=== PATIENT | male | born 1960 | race Caucasian/White ===

== ENCOUNTER 2016-09-15 11:32 | Emergency (ER) | payer MEDICARE, OTHER ==
[2016-09-15] MEDS ORDERED: Sodium Chloride 0.9% 10 ML Syringe FLUSH PRN (12:02)
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
[2016-09-15] MEDS ORDERED: Sodium Chloride 0.9% 1,000 ML IV ONE (12:27)
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
--- NOTE | 2016-09-15 15:45 | CR ---
Chest: Portable view of the chest was obtained. Comparison: No previous study. Cardiac silhouette and mediastinum are normal. Sternotomy is noted for prosthetic heart valve. Lungs are clear with no acute infiltrates. Bony structures appear grossly intact. Impression: 1. Nothing acute is identified on portable chest x-ray. Diagnostic code #2
[2016-09-15 17:04] VITALS: BP 134/79
== END 2016-09-15 16:55 | disposition home or self-care (01) ==
LOC: JD.ED 11:32 → SUPCPDRO 11:32 → JD.ED 16:55
DX: R42 Dizziness and giddiness (principal); Z87.891 Personal history of nicotine dependence; Z95.2 Presence of prosthetic heart valve
CPT/HCPCS: 36415; 70450; 71010; 80053; 81001; 83880; 84484; 85025; 85610; 93005; 96360; 99285; J7040; J7050; 82962; 99284

== ENCOUNTER 2017-05-19 07:57 | Inpatient (IN) | payer MEDICARE, SELFPAY ==
[~2017-05-19 07:57] MED LIST: Bisacodyl 5 MG Tab PO PRN; Cyclobenzaprine 10 MG Tab PO PRN; Lactated Ringers 1,000 ML IV SCH; Lidocaine 1%/Sod Bicarbonate in NS 8.4% 1 ML Syringe IV PRN; Magnesium Hydroxide 400 MG/5 ML Susp 30 ML Cup PO PRN; Morphine 2 MG/ML Syringe IVPUSH PRN; Naloxone 0.4 MG/ML SDV IVPUSH PRN; Ondansetron 4 MG/2 ML SDV IVPUSH PRN; Sennosides 8.6 MG Tab PO PRN; Sodium Chloride 0.9% 10 ML Syringe FLUSH PRN; diphenhydrAMINE 50 MG/ML SDV IVPUSH PRN
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
[2017-05-19] MEDS ORDERED: Morphine PF 1 MG/ML Amp ONE (08:56)
[2017-05-19] MEDS ORDERED: fentaNYL 100 MCG/2 ML SDV ONE (09:19)
[2017-05-19] MEDS ORDERED: Propofol 200 MG/20 ML SDV ONE (09:19)
[2017-05-19] MEDS ORDERED: Midazolam 1 MG/ML 2 ML SDV ONE (09:19)
[2017-05-19] MEDS ORDERED: Ondansetron 4 MG/2 ML SDV ONE (09:21)
[2017-05-19] MEDS ORDERED: ceFAZolin 1 GM Vial ONE (09:22)
[2017-05-19] MEDS: Bupivacaine 0.25% 30 ML SDV ONE ×2 (10:29→11:19)
[2017-05-19] MEDS: ceFAZolin 1 GM Vial ONE ×2 (10:30→11:14)
[2017-05-19] MEDS: Morphine 8 MG, EPINEPHrine 0.3 MG, Cefuroxime 750 MG, Ketorolac 30 MG, Sodium Chloride ... ONE ×10 (10:31→11:18)
[2017-05-19] MEDS: Iodine/Sodium Iodide 2% Tincture 30 ML Bottle ONE ×2 (10:31→11:13)
[2017-05-19] MEDS: Vancomycin 1 GM SDV ONE ×2 (10:32→11:20)
[2017-05-19] MEDS ORDERED: Lactated Ringers 1,000 ML ONE ×2 (11:18→11:38)
--- NOTE | 2017-05-19 11:59 | PCM.POSTAN ---
POST ANESTHESIA ASSESSMENT - MENTAL STATUS Mental Status: Alert, Oriented - VITAL SIGNS Pulse Rate: 67 SaO2: 94 Resp Rate: 14 Blood Pressure: 101/76 Temperature: 36.6 C - RESPIRATORY Respiratory Status: Respiratory Rate WNL, Airway Patent, O2 Saturation Stable, Supplemental Oxygen - CARDIOVASCULAR CV Status: Pulse Rate WNL, Blood Pressure Stable - GASTROINTESTINAL GI Status: No Symptoms - PAIN Pain Score: 0 - POST OP HYDRATION Hydration Status: Adequate & Stable
[2017-05-19] MEDS ORDERED: diphenhydrAMINE 50 MG/ML SDV IVPUSH PRN (12:00)
[2017-05-19] MEDS ORDERED: Ondansetron 4 MG/2 ML SDV IVPUSH PRN (12:00)
[2017-05-19] MEDS ORDERED: fentaNYL 100 MCG/2 ML SDV IVPUSH PRN (12:00)
[2017-05-19] MEDS ORDERED: Meperidine PF 50 MG/ML Syringe IVPUSH PRN (12:00)
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
[2017-05-19] MEDS: ceFAZolin 2 GM in Premix Bag 1 BAG IV SCH ×2 (15:41→23:55)
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
[2017-05-19] MEDS ORDERED: 50% Dextrose in Water 50 ML Syringe IVPUSH PRN (16:54)
[2017-05-19] MEDS ORDERED: FLU Vacc QS 2017-18 (6mos UP)/PF 60 MCG/0.5 ML Syringe IM ONE (17:15)
[2017-05-19] MEDS ORDERED: Warfarin 10 MG Tab PO ONE (18:00)
[2017-05-19] MEDS: Acetaminophen/oxyCODONE 325-5 MG Tab PO PRN (18:08)
[2017-05-19] MEDS: Insulin Aspart 100 Units/ML 3 ML Pen SUBCUT SCH ×2 (18:10→22:21)
[2017-05-19] MEDS ORDERED: Enoxaparin 30 MG/0.3 ML Syringe SUBCUT SCH (21:00)
[2017-05-19] MEDS ORDERED: Rosuvastatin 10 MG Tab PO SCH (21:00)
[2017-05-19] MEDS: Famotidine 20 MG Tab PO SCH (21:23)
[2017-05-19] MEDS: metFORMIN 500 MG Tab PO SCH (21:23)
[2017-05-19] MEDS: Docusate Sodium 100 MG Cap PO SCH (21:23)
[2017-05-20] MEDS: Acetaminophen/oxyCODONE 325-5 MG Tab PO PRN ×3 (04:30→17:20)
--- NOTE | 2017-05-20 07:15 | PCM.OPNOTE ---
- General Post-Op/Procedure Note Date of Surgery/Procedure: 05/19/17 Operative Procedure(s): right total hip arthroplasty Pre Op Diagnosis: right hip osteoarthrosis Post-Op Diagnosis: Same Anesthesia Technique: Local, MAC, Spinal Primary Surgeon: mAarjit Soto Anesthesia Provider: Bryce Pinto Energy Efficiency Specialist: Carmen Barriga Energy Efficiency Specialist: Norma Chawla EBShaina in mLs: 600 Complications: None Condition: Good Free Text/Narrative:: Intake & Output 05/19/17 05/20/17 05/20/17 22:59 06:59 14:59 Intake Total 120 450 Output Total 450 Balance 120 0 size 50 PSL cup size 7 stem 42mm MDM liner 28+8 head
--- NOTE | 2017-05-20 08:01 | PCM48HPAN ---
Post Anesthesia Note - EVALUATION WITHIN 48HRS OF ANESTHETIC Vital Signs in Normal Range: Yes Patient Participated in Evaluation: Yes Respiratory Function Stable: Yes Airway Patent: Yes Cardiovascular Function Stable: Yes Hydration Status Stable: Yes Pain Control Satisfactory: Yes Nausea and Vomiting Control Satisfactory: Yes Mental Status Recovered: Yes - COMMENTS/OBSERVATIONS Free Text/Narrative:: Patient doing well resting in bed. Has been ambulating with no problems. Has no complaints. Denies pain.
[2017-05-20] MEDS ORDERED: Cholecalciferol (Vitamin D3) 1,000 Unit Tab PO SCH (09:00)
[2017-05-20] MEDS ORDERED: amLODIPine 10 MG Tab PO SCH (09:00)
[2017-05-20] MEDS ORDERED: Metoprolol Succinate 50 MG Tab.ER PO SCH (09:00)
[2017-05-20] MEDS ORDERED: Enoxaparin 120 MG/0.8 ML Syringe SUBCUT SCH (09:00)
--- NOTE | 2017-05-20 09:00 | PCM.CONSN ---
- General Info Date of Service: 05/20/17 Admission Dx/Problem (Free Text): Admission Diagnosis/Problem Admission Diagnosis/Problem Osteoarthritis of hip POD #1, Rt GUIDO with Dr. Soto Doing well, ambulating, urinating, no N/V VSS on RA Plans for DC home today Functional Status: Reports: Pain Controlled, Tolerating Diet, Ambulating, Urinating, Incentive Spirometry - Review of Systems General: Reports: No Symptoms HEENT: Reports: No Symptoms Pulmonary: Reports: No Symptoms Cardiovascular: Reports: No Symptoms Gastrointestinal: Reports: No Symptoms Genitourinary: Reports: No Symptoms Musculoskeletal: Reports: Leg Pain Skin: Reports: No Symptoms Neurological: Reports: No Symptoms Psychiatric: Reports: No Symptoms - Patient Data Vitals - Most Recent: Last Vital Signs Temp 98.1 F 05/20/17 07:29 Pulse 81 05/20/17 07:29 Resp 16 05/20/17 07:29 BP 130/71 05/20/17 07:29 Pulse Ox 97 05/20/17 07:29 Weight - Most Recent: 258 lb 6.4 oz I&O - Last 24 Hours: Intake & Output 05/19/17 05/20/17 05/20/17 22:59 06:59 14:59 Intake Total 120 450 Output Total 450 Balance 120 0 Lab Results Last 24 Hours: Laboratory Results - last 24 hr 05/19/17 05/19/17 05/19/17 Range/Units 08:28 12:38 17:14 WBC (4.23-9.07) K/mm3 RBC (4.63-6.08) M/mm3 Hgb (13.7-17.5) gm/L Hct (40.1-51.0) % MCV (79.0-92.2) fl MCH (25.7-32.2) pg MCHC (32.2-35.5) g/dl RDW Std Deviation (35.1-43.9) fL Plt Count (163-337) K/mm3 MPV (9.4-12.3) fl PT (8.0-13.0) SECONDS INR Sodium (136-145) mEq/L Potassium (3.5-5.1) mEq/L Chloride (98-107) mEq/L Carbon Dioxide (21-32) mEq/L Anion Gap (5-15) BUN (7-18) mg/dL Creatinine (0.7-1.3) mg/dL Est Cr Clr Drug Dosing mL/min Estimated GFR (MDRD) (>60) mL/min BUN/Creatinine Ratio (14-18) Glucose (74-106) mg/dL POC Glucose 122 H 200 H (70-105) mg/dL Calcium (8.5-10.1) mg/dL Total Bilirubin (0.2-1.0) mg/dL AST (15-37) U/L ALT (16-63) U/L Alkaline Phosphatase (46-116) U/L Total Protein (6.4-8.2) g/dl Albumin (3.4-5.0) g/dl Globulin gm/dL Albumin/Globulin Ratio (1-2) Blood Type A POSITIVE Gel Antibody Screen Positive 05/19/17 05/20/17 05/20/17 Range/Units 22:10 05:10 05:10 WBC 10.53 H (4.23-9.07) K/mm3 RBC 4.38 L (4.63-6.08) M/mm3 Hgb 12.2 L (13.7-17.5) gm/L Hct 37.7 L (40.1-51.0) % MCV 86.1 (79.0-92.2) fl MCH 27.9 (25.7-32.2) pg MCHC 32.4 (32.2-35.5) g/dl RDW Std Deviation 44.1 H (35.1-43.9) fL Plt Count 174 (163-337) K/mm3 MPV 9.6 (9.4-12.3) fl PT (8.0-13.0) SECONDS INR Sodium 136 (136-145) mEq/L Potassium 4.2 (3.5-5.1) mEq/L Chloride 103 (98-107) mEq/L Carbon Dioxide 26 (21-32) mEq/L Anion Gap 11.2 (5-15) BUN 21 H (7-18) mg/dL Creatinine 1.1 (0.7-1.3) mg/dL Est Cr Clr Drug Dosing 73.20 mL/min Estimated GFR (MDRD) > 60 (>60) mL/min BUN/Creatinine Ratio 19.1 H (14-18) Glucose 151 H (74-106) mg/dL POC Glucose 151 H (70-105) mg/dL Calcium 8.3 L (8.5-10.1) mg/dL Total Bilirubin 0.5 (0.2-1.0) mg/dL AST 61 H (15-37) U/L ALT 97 H (16-63) U/L Alkaline Phosphatase 85 (46-116) U/L Total Protein 6.1 L (6.4-8.2) g/dl Albumin 3.1 L (3.4-5.0) g/dl Globulin 3.0 gm/dL Albumin/Globulin Ratio 1.0 (1-2) Blood Type Gel Antibody Screen 05/20/17 05/20/17 Range/Units 05:10 05:51 WBC (4.23-9.07) K/mm3 RBC (4.63-6.08) M/mm3 Hgb (13.7-17.5) gm/L Hct (40.1-51.0) % MCV (79.0-92.2) fl MCH (25.7-32.2) pg MCHC (32.2-35.5) g/dl RDW Std Deviation (35.1-43.9) fL Plt Count (163-337) K/mm3 MPV (9.4-12.3) fl PT 10.5 (8.0-13.0) SECONDS INR 0.97 Sodium (136-145) mEq/L Potassium (3.5-5.1) mEq/L Chloride (98-107) mEq/L Carbon Dioxide (21-32) mEq/L Anion Gap (5-15) BUN (7-18) mg/dL Creatinine (0.7-1.3) mg/dL Est Cr Clr Drug Dosing mL/min Estimated GFR (MDRD) (>60) mL/min BUN/Creatinine Ratio (14-18) Glucose (74-106) mg/dL POC Glucose 164 H (70-105) mg/dL Calcium (8.5-10.1) mg/dL Total Bilirubin (0.2-1.0) mg/dL AST (15-37) U/L ALT (16-63) U/L Alkaline Phosphatase (46-116) U/L Total Protein (6.4-8.2) g/dl Albumin (3.4-5.0) g/dl Globulin gm/dL Albumin/Globulin Ratio (1-2) Blood Type Gel Antibody Screen Med Orders - Current: Current Medications Amlodipine Besylate (Norvasc) 10 mg PO DAILY [facility] Bisacodyl (Dulcolax) 5 mg PO DAILY PRN PRN Reason: Constipation Cholecalciferol (Vitamin D3) 5,000 units PO DAILY [facility] Cyclobenzaprine HCl (Flexeril) 10 mg PO TID PRN PRN Reason: Spasms Dextrose/Water (Dextrose 50% In Water) 50 ml IVPUSH ASDIRECTED PRN PRN Reason: Hypoglycemia Diphenhydramine HCl (Benadryl) 25 mg IVPUSH Q4H PRN PRN Reason: Nausea Last Admin: 05/19/17 14:20 Dose: 25 mg Docusate Sodium (Colace) 100 mg PO BID [facility] Last Admin: 05/19/17 21:23 Dose: 100 mg Enoxaparin Sodium (Lovenox) 110 mg SUBCUT BID [facility] Famotidine (Pepcid) 20 mg PO Q12H [facility] Last Admin: 05/19/17 21:23 Dose: 20 mg Glipizide (Glucotrol) 10 mg PO DAILY [facility] Insulin Aspart (Novolog) 0 unit SUBCUT QIDACANDBED [facility] PRN Reason: Protocol Last Admin: 05/19/17 22:21 Dose: 1 units Magnesium Hydroxide (Milk Of Magnesia) 30 ml PO BID PRN PRN Reason: Constipation Metformin HCl (Glucophage) 1,000 mg PO BID [facility] Last Admin: 05/19/17 21:23 Dose: 1,000 mg Metoprolol Succinate (Toprol Xl) 100 mg PO DAILY [facility] Morphine Sulfate (Morphine) 2 mg IVPUSH Q2H PRN PRN Reason: Breakthrough Pain Naloxone HCl (Narcan) 0.1 mg IVPUSH Q5M PRN PRN Reason: Oversedation Ondansetron HCl (Zofran) 4 mg IVPUSH Q6H PRN PRN Reason: Nausea/Vomiting Oxycodone/Acetaminophen (Percocet 325-5 Mg) 1 - 2 tab PO Q4H PRN PRN Reason: Pain Last Admin: 05/20/17 04:30 Dose: 2 tab Rosuvastatin Calcium (Crestor) 20 mg PO BEDTIME [facility] Last Admin: 05/19/17 21:23 Dose: 20 mg Senna (Senna) 8.6 mg PO BID PRN PRN Reason: Constipation Sodium Chloride (Saline Flush) 10 ml FLUSH ASDIRECTED PRN PRN Reason: Keep Vein Open Warfarin Sodium (Pharmacy To Dose - Warfarin) 1 dose .XX ASDIRECTED [facility] Warfarin Sodium (Coumadin) 10 mg PO ONETIME ONE Stop: 05/20/17 18:01 Discontinued Medications Bupivacaine HCl (Marcaine 0.25%) Confirm Administered Dose 30 ml .ROUTE .STK- MED ONE Stop: 05/19/17 08:24 Last Admin: 05/19/17 11:19 Dose: 30 ml Cefazolin Sodium (Ancef) Confirm Administered Dose 2 gm .ROUTE .[facility] ONE Stop: 05/19/17 08:22 Last Admin: 05/19/17 11:14 Dose: 2 gm Cefazolin Sodium (Ancef) Confirm Administered Dose 2 gm .ROUTE .[facility] ONE Stop: 05/19/17 09:23 Morphine Sulfate 8 mg/Epinephrine HCl 0.3 mg/Cefuroxime Sodium 750 mg/Ketorolac Tromethamine 30 mg/Sodium Chloride 27.9 ml 0 mg .XX ONETIME ONE Stop: 05/19/17 08:31 Last Admin: 05/19/17 11:18 Dose: 788.3 mg Diphenhydramine HCl (Benadryl) 25 mg IVPUSH Q6H PRN PRN Reason: Pruritis Stop: 05/19/17 14:00 Enoxaparin Sodium (Lovenox) 30 mg SUBCUT BID [facility] Fentanyl (Sublimaze) Confirm Administered Dose 100 mcg .ROUTE .STK-MED ONE Stop: 05/19/17 09:20 Fentanyl (Sublimaze) 50 mcg IVPUSH Q5M PRN PRN Reason: Pain Stop: 05/19/17 14:00 Lactated Ringer's (Ringers, Lactated) 1,000 mls @ 125 mls/hr IV ASDIRECTED [facility] Stop: 05/19/17 23:00 Last Admin: 05/19/17 08:20 Dose: 125 mls/hr Cefazolin Sodium/Dextrose 2 gm (/ Premix) 50 mls @ 100 mls/hr IV Q8H [facility] Stop: 05/20/17 08:59 Last Admin: 05/19/17 23:55 Dose: 100 mls/hr Lactated Ringer's (Ringers, Lactated) Confirm Administered Dose 1,000 mls @ as directed .ROUTE .STK-MED ONE Stop: 05/19/17 11:19 Lactated Ringer's (Ringers, Lactated) Confirm Administered Dose 1,000 mls @ as directed .ROUTE .STK-MED ONE Stop: 05/19/17 11:39 Influenza Virus Vaccine (Pharmacy To Dose - Influenza Vaccine) 1 each IM ONETIME ONE Stop: 05/19/17 17:00 Influenza Virus Vaccine (Flulaval Quad [id number]) 60 mcg IM .ONCE ONE Stop: 05/19/17 17:16 Iodine (Iodine 2% Mild Tincture) Confirm Administered Dose 30 ml .ROUTE .STK- MED ONE Stop: 05/19/17 08:24 Last Admin: 05/19/17 11:13 Dose: 18 ml Lidocaine/Sodium Bicarbonate (Buffered Lidocaine 1% In Ns 8.4%) 0.25 ml IV ONETIME PRN PRN Reason: Prior to IV Start Stop: 05/19/17 16:00 Last Admin: 05/19/17 08:19 Dose: 0.25 ml Meperidine HCl (Demerol) 12.5 mg IVPUSH ONETIME PRN PRN Reason: Shivering Stop: 05/19/17 14:00 Midazolam HCl (Versed 1 Mg/Ml) Confirm Administered Dose 2 mg .ROUTE .STK-MED ONE Stop: 05/19/17 09:20 Morphine Sulfate (Duramorph Pf) Confirm Administered Dose 1 mg .ROUTE .STK-MED ONE Stop: 05/19/17 08:57 Ondansetron HCl (Zofran) Confirm Administered Dose 4 mg .ROUTE .STK-MED ONE Stop: 05/19/17 09:22 Ondansetron HCl (Zofran) 4 mg IVPUSH ONETIME PRN PRN Reason: Nausea/Vomiting Stop: 05/19/17 14:00 Propofol (Diprivan 20 Ml) Confirm Administered Dose 600 mg .ROUTE .STK-MED ONE Stop: 05/19/17 09:20 Tranexamic Acid (Cyklokapron) Confirm Administered Dose 1,000 mg .ROUTE .STK- MED ONE Stop: 05/19/17 08:23 Last Admin: 05/19/17 11:21 Dose: 1,000 mg Vancomycin HCl (Vancomycin) Confirm Administered Dose 1 gm .ROUTE .STK-MED ONE Stop: 05/19/17 08:23 Last Admin: 05/19/17 11:20 Dose: 1 gm Warfarin Sodium (Coumadin) 10 mg PO ONETIME ONE Stop: 05/19/17 18:01 Last Admin: 05/19/17 18:10 Dose: 10 mg - Exam Quality Assessment: DVT Prophylaxis General: Alert, Oriented, Cooperative, No Acute Distress HEENT: Pupils Equal, EOMI, Mucous Membr. Moist/Lostant, Other (poor dentition) Neck: Supple Lungs: Clear to Auscultation, Normal Respiratory Effort Cardiovascular: Regular Rate, Regular Rhythm, Other (AVR noted, click noted) GI/Abdominal Exam: Normal Bowel Sounds, Soft, Non-Tender, Other (round, obese) (Male) Exam: Deferred Extremities: Normal Inspection, No Pedal Edema, Normal Capillary Refill, Other ( right thigh is soft, dressing is CDI, CMS is + and = distally. SCD's bilat and ice to rt hip) Peripheral Pulses: 2+: Dorsalis Pedis (L), Dorsalis Pedis (R) Neurological: No New Focal Deficit Psy/Mental Status: Alert, Normal Affect, Normal Mood Consult PN Assessment/Plan POD#: 1 Procedures: Procedures 3D RENDER W/INTRP POSTPROCES (03/26/17) ASSAY OF NATRIURETIC PEPTIDE (09/15/16) ASSAY OF PREALBUMIN (04/29/17) ASSAY OF TROPONIN QUANT (09/15/16) ASSAY THYROID STIM HORMONE (01/06/17) CHEST X-RAY 1 VIEW FRONTAL (09/15/16) COMPLETE CBC W/AUTO DIFF WBC (04/29/17) COMPREHEN METABOLIC PANEL (04/29/17) CT HEAD/BRAIN W/O DYE (09/15/16) CT LOWER EXTREMITY W/O DYE (03/26/17) DXA BONE DENSITY AXIAL (05/14/17) EEG AWAKE AND DROWSY (03/11/17) ELECTROCARDIOGRAM TRACING (09/15/16) EMERGENCY DEPT VISIT (09/15/16) GLYCOSYLATED HEMOGLOBIN TEST (04/07/17) HYDRATION IV INFUSION INIT (09/15/16) LIPID PANEL (01/06/17) MRI BRAIN STEM W/O DYE (03/11/17) OFFICE/OUTPATIENT VISIT EST (04/29/17) OFFICE/OUTPATIENT VISIT EST (04/10/17) OFFICE/OUTPATIENT VISIT EST (09/30/16) PROTHROMBIN TIME (05/16/17) ROUTINE VENIPUNCTURE (05/16/17) THROMBOPLASTIN TIME PARTIAL (04/29/17) UR ALBUMIN QUANTITATIVE (09/20/16) URINALYSIS AUTO W/SCOPE (09/15/16) X-RAY EXAM HIP UNI 2-3 VIEWS (02/20/17) (1) S/P total hip arthroplasty SNOMED Code(s): 536684149415 Code(s): Z96.649 - PRESENCE OF UNSPECIFIED ARTIFICIAL HIP JOINT Priority: High Current Visit: Yes Qualifiers: Laterality: right Qualified Code(s): Z96.641 - Presence of right artificial hip joint (2) Osteoarthritis SNOMED Code(s): 098801960 Code(s): M19.90 - UNSPECIFIED OSTEOARTHRITIS, UNSPECIFIED SITE Priority: High Current Visit: Yes Qualifiers: Osteoarthritis location: hip Osteoarthritis type: primary Laterality: right Qualified Code(s): M16.11 - Unilateral primary osteoarthritis, right hip (3) Type II diabetes mellitus SNOMED Code(s): 72579785 Code(s): E11.9 - TYPE 2 DIABETES MELLITUS WITHOUT COMPLICATIONS Priority: Medium Current Visit: Yes Qualifiers: Diabetes mellitus complication status: without complication Diabetes mellitus senior living insulin use: without senior living use Qualified Code(s): E11.9 - Type 2 diabetes mellitus without complications (4) HTN (hypertension) SNOMED Code(s): 48479025 Code(s): I10 - ESSENTIAL (PRIMARY) HYPERTENSION Priority: Low Current Visit: Yes Qualifiers: Hypertension type: unspecified Qualified Code(s): I10 - Essential (primary ) hypertension (5) H/O aortic valve replacement SNOMED Code(s): 1573367958422, 0814140006108 Code(s): Z95.2 - PRESENCE OF PROSTHETIC HEART VALVE Priority: Low Current Visit: No (6) H/O endocarditis SNOMED Code(s): 208969553 Code(s): Z86.79 - PERSONAL HISTORY OF OTHER DISEASES OF THE CIRCULATORY SYSTEM Priority: Low Current Visit: No (7) HLD (hyperlipidemia) SNOMED Code(s): 92760376 Code(s): E78.5 - HYPERLIPIDEMIA, UNSPECIFIED Priority: Low Current Visit : No Qualifiers: Hyperlipidemia type: unspecified Qualified Code(s): E78.5 - Hyperlipidemia , unspecified (8) Sleep disorder breathing SNOMED Code(s): 005953049 Code(s): G47.30 - SLEEP APNEA, UNSPECIFIED Priority: Low Current Visit: No Problem List Initiated/Reviewed/Updated: Yes Plan: I/P: S/P Rt GUIDO with Dr. Soto- POD #1 -Pain management and DVT prophylax per primary team -PT/OT -RT/IS -VSS on RA now -Labs stable; hgb 12.2; INR 0.97--continues on lovenox and warfarin; will rx lovenox x 7 doses until patient has f/up with PCP, Dr. Benavides on Friday05/23/17 with recheck INR at that time. Will Cont on home dose of Warfarin also Mildly elevated LFT's -AST/ALT 61/97 respectively---recommend recheck/fup with PCP to follow this. Chronic conditions: DM type 2- cont home meds, SSI during stay, accuchecks AC/HS--sugars 150-200's during hospital stay. Cont home meds at DC. S/P AVR, 2009--on warfarin, will bridge with lovenox as above- feels comfortable doing this at home as they did bridge preoperatively as well. S/P intercranial aneurysm repair, 2009 HTN HLD Sleep disorder Other: GI prophylax CM for assist with DC planning--Outpatient PT; Fup with Dr. Benavides has been scheduled per nursing. *OK from Hospitalist standpoint for DC home today with . Relayed to Ortho team. Patient is Full Code status. PCP is Dr. Benavides with [facility] in [place].
[2017-05-20] MEDS: ceFAZolin 2 GM in Premix Bag 1 BAG IV SCH (09:32)
[2017-05-20] MEDS: Famotidine 20 MG Tab PO SCH (09:38)
[2017-05-20] MEDS: metFORMIN 500 MG Tab PO SCH (09:38)
[2017-05-20] MEDS: Docusate Sodium 100 MG Cap PO SCH (09:39)
[2017-05-20] MEDS: Insulin Aspart 100 Units/ML 3 ML Pen SUBCUT SCH ×3 (09:40→17:22)
--- NOTE | 2017-05-20 12:18 | PCM.SURGPN ---
- General Info Date of Service: 05/20/17 POD#: 1 Functional Status: Reports: Pain Controlled, Tolerating Diet, Ambulating, Urinating, Incentive Spirometry - Review of Systems Musculoskeletal: Reports: Other (The pt's pain is controlled. He has met inpatient therapy goals.) - Patient Data Vitals - Most Recent: Last Vital Signs Temp 98.4 F 05/20/17 10:55 Pulse 83 05/20/17 10:55 Resp 20 05/20/17 10:55 BP 118/77 05/20/17 10:55 Pulse Ox 93 L 05/20/17 10:55 Weight - Most Recent: 258 lb 6.4 oz I&O - Last 24 Hours: Intake & Output 05/19/17 05/20/17 05/20/17 22:59 06:59 14:59 Intake Total 120 450 360 Output Total 450 Balance 120 0 360 Lab Results Last 24 Hrs: Laboratory Results - last 24 hr 05/19/17 05/19/17 05/19/17 Range/Units 12:38 17:14 22:10 WBC (4.23-9.07) K/mm3 RBC (4.63-6.08) M/mm3 Hgb (13.7-17.5) gm/L Hct (40.1-51.0) % MCV (79.0-92.2) fl MCH (25.7-32.2) pg MCHC (32.2-35.5) g/dl RDW Std Deviation (35.1-43.9) fL Plt Count (163-337) K/mm3 MPV (9.4-12.3) fl PT (8.0-13.0) SECONDS INR Sodium (136-145) mEq/L Potassium (3.5-5.1) mEq/L Chloride (98-107) mEq/L Carbon Dioxide (21-32) mEq/L Anion Gap (5-15) BUN (7-18) mg/dL Creatinine (0.7-1.3) mg/dL Est Cr Clr Drug Dosing mL/min Estimated GFR (MDRD) (>60) mL/min BUN/Creatinine Ratio (14-18) Glucose (74-106) mg/dL POC Glucose 122 H 200 H 151 H (70-105) mg/dL Calcium (8.5-10.1) mg/dL Total Bilirubin (0.2-1.0) mg/dL AST (15-37) U/L ALT (16-63) U/L Alkaline Phosphatase (46-116) U/L Total Protein (6.4-8.2) g/dl Albumin (3.4-5.0) g/dl Globulin gm/dL Albumin/Globulin Ratio (1-2) 05/20/17 05/20/17 05/20/17 Range/Units 05:10 05:10 05:10 WBC 10.53 H (4.23-9.07) K/mm3 RBC 4.38 L (4.63-6.08) M/mm3 Hgb 12.2 L (13.7-17.5) gm/L Hct 37.7 L (40.1-51.0) % MCV 86.1 (79.0-92.2) fl MCH 27.9 (25.7-32.2) pg MCHC 32.4 (32.2-35.5) g/dl RDW Std Deviation 44.1 H (35.1-43.9) fL Plt Count 174 (163-337) K/mm3 MPV 9.6 (9.4-12.3) fl PT 10.5 (8.0-13.0) SECONDS INR 0.97 Sodium 136 (136-145) mEq/L Potassium 4.2 (3.5-5.1) mEq/L Chloride 103 (98-107) mEq/L Carbon Dioxide 26 (21-32) mEq/L Anion Gap 11.2 (5-15) BUN 21 H (7-18) mg/dL Creatinine 1.1 (0.7-1.3) mg/dL Est Cr Clr Drug Dosing 73.20 mL/min Estimated GFR (MDRD) > 60 (>60) mL/min BUN/Creatinine Ratio 19.1 H (14-18) Glucose 151 H (74-106) mg/dL POC Glucose (70-105) mg/dL Calcium 8.3 L (8.5-10.1) mg/dL Total Bilirubin 0.5 (0.2-1.0) mg/dL AST 61 H (15-37) U/L ALT 97 H (16-63) U/L Alkaline Phosphatase 85 (46-116) U/L Total Protein 6.1 L (6.4-8.2) g/dl Albumin 3.1 L (3.4-5.0) g/dl Globulin 3.0 gm/dL Albumin/Globulin Ratio 1.0 (1-2) 05/20/17 05/20/17 Range/Units 05:51 10:10 WBC (4.23-9.07) K/mm3 RBC (4.63-6.08) M/mm3 Hgb (13.7-17.5) gm/L Hct (40.1-51.0) % MCV (79.0-92.2) fl MCH (25.7-32.2) pg MCHC (32.2-35.5) g/dl RDW Std Deviation (35.1-43.9) fL Plt Count (163-337) K/mm3 MPV (9.4-12.3) fl PT (8.0-13.0) SECONDS INR Sodium (136-145) mEq/L Potassium (3.5-5.1) mEq/L Chloride (98-107) mEq/L Carbon Dioxide (21-32) mEq/L Anion Gap (5-15) BUN (7-18) mg/dL Creatinine (0.7-1.3) mg/dL Est Cr Clr Drug Dosing mL/min Estimated GFR (MDRD) (>60) mL/min BUN/Creatinine Ratio (14-18) Glucose (74-106) mg/dL POC Glucose 164 H 249 H (70-105) mg/dL Calcium (8.5-10.1) mg/dL Total Bilirubin (0.2-1.0) mg/dL AST (15-37) U/L ALT (16-63) U/L Alkaline Phosphatase (46-116) U/L Total Protein (6.4-8.2) g/dl Albumin (3.4-5.0) g/dl Globulin gm/dL Albumin/Globulin Ratio (1-2) Med Orders - Current: Current Medications Amlodipine Besylate (Norvasc) 10 mg PO DAILY [facility] Last Admin: 05/20/17 09:39 Dose: 10 mg Bisacodyl (Dulcolax) 5 mg PO DAILY PRN PRN Reason: Constipation Cholecalciferol (Vitamin D3) 5,000 units PO DAILY [facility] Last Admin: 05/20/17 09:37 Dose: 5,000 units Cyclobenzaprine HCl (Flexeril) 10 mg PO TID PRN PRN Reason: Spasms Dextrose/Water (Dextrose 50% In Water) 50 ml IVPUSH ASDIRECTED PRN PRN Reason: Hypoglycemia Diphenhydramine HCl (Benadryl) 25 mg IVPUSH Q4H PRN PRN Reason: Nausea Last Admin: 05/19/17 14:20 Dose: 25 mg Docusate Sodium (Colace) 100 mg PO BID [facility] Last Admin: 05/20/17 09:39 Dose: 100 mg Enoxaparin Sodium (Lovenox) 110 mg SUBCUT BID [facility] Last Admin: 05/20/17 09:39 Dose: 110 mg Famotidine (Pepcid) 20 mg PO Q12H [facility] Last Admin: 05/20/17 09:38 Dose: 20 mg Glipizide (Glucotrol) 10 mg PO DAILY [facility] Last Admin: 05/20/17 09:38 Dose: 10 mg Insulin Aspart (Novolog) 0 unit SUBCUT QIDACANDBED [facility] PRN Reason: Protocol Last Admin: 05/20/17 09:40 Dose: 1 units Magnesium Hydroxide (Milk Of Magnesia) 30 ml PO BID PRN PRN Reason: Constipation Metformin HCl (Glucophage) 1,000 mg PO BID [facility] Last Admin: 05/20/17 09:38 Dose: 1,000 mg Metoprolol Succinate (Toprol Xl) 100 mg PO DAILY [facility] Last Admin: 05/20/17 09:37 Dose: 100 mg Morphine Sulfate (Morphine) 2 mg IVPUSH Q2H PRN PRN Reason: Breakthrough Pain Naloxone HCl (Narcan) 0.1 mg IVPUSH Q5M PRN PRN Reason: Oversedation Ondansetron HCl (Zofran) 4 mg IVPUSH Q6H PRN PRN Reason: Nausea/Vomiting Oxycodone/Acetaminophen (Percocet 325-5 Mg) 1 - 2 tab PO Q4H PRN PRN Reason: Pain Last Admin: 05/20/17 09:38 Dose: 2 tab Rosuvastatin Calcium (Crestor) 20 mg PO BEDTIME [facility] Last Admin: 05/19/17 21:23 Dose: 20 mg Senna (Senna) 8.6 mg PO BID PRN PRN Reason: Constipation Sodium Chloride (Saline Flush) 10 ml FLUSH ASDIRECTED PRN PRN Reason: Keep Vein Open Warfarin Sodium (Pharmacy To Dose - Warfarin) 1 dose .XX ASDIRECTED [facility] Warfarin Sodium (Coumadin) 10 mg PO ONETIME ONE Stop: 05/20/17 18:01 Discontinued Medications Bupivacaine HCl (Marcaine 0.25%) Confirm Administered Dose 30 ml .ROUTE .STK- MED ONE Stop: 05/19/17 08:24 Last Admin: 05/19/17 11:19 Dose: 30 ml Cefazolin Sodium (Ancef) Confirm Administered Dose 2 gm .ROUTE .STK-MED ONE Stop: 05/19/17 08:22 Last Admin: 05/19/17 11:14 Dose: 2 gm Cefazolin Sodium (Ancef) Confirm Administered Dose 2 gm .ROUTE .STK-MED ONE Stop: 05/19/17 09:23 Morphine Sulfate 8 mg/Epinephrine HCl 0.3 mg/Cefuroxime Sodium 750 mg/Ketorolac Tromethamine 30 mg/Sodium Chloride 27.9 ml 0 mg .XX ONETIME ONE Stop: 05/19/17 08:31 Last Admin: 05/19/17 11:18 Dose: 788.3 mg Diphenhydramine HCl (Benadryl) 25 mg IVPUSH Q6H PRN PRN Reason: Pruritis Stop: 05/19/17 14:00 Enoxaparin Sodium (Lovenox) 30 mg SUBCUT BID [facility] Fentanyl (Sublimaze) Confirm Administered Dose 100 mcg .ROUTE .STK-MED ONE Stop: 05/19/17 09:20 Fentanyl (Sublimaze) 50 mcg IVPUSH Q5M PRN PRN Reason: Pain Stop: 05/19/17 14:00 Lactated Ringer's (Ringers, Lactated) 1,000 mls @ 125 mls/hr IV ASDIRECTED [facility] Stop: 05/19/17 23:00 Last Admin: 05/19/17 08:20 Dose: 125 mls/hr Cefazolin Sodium/Dextrose 2 gm (/ Premix) 50 mls @ 100 mls/hr IV Q8H [facility] Stop: 05/20/17 08:59 Last Admin: 05/20/17 09:32 Dose: 100 mls/hr Lactated Ringer's (Ringers, Lactated) Confirm Administered Dose 1,000 mls @ as directed .ROUTE .STK-MED ONE Stop: 05/19/17 11:19 Lactated Ringer's (Ringers, Lactated) Confirm Administered Dose 1,000 mls @ as directed .ROUTE .STK-MED ONE Stop: 05/19/17 11:39 Influenza Virus Vaccine (Pharmacy To Dose - Influenza Vaccine) 1 each IM ONETIME ONE Stop: 05/19/17 17:00 Influenza Virus Vaccine (Flulaval Quad [id number]) 60 mcg IM .ONCE ONE Stop: 05/19/17 17:16 Iodine (Iodine 2% Mild Tincture) Confirm Administered Dose 30 ml .ROUTE .STK- MED ONE Stop: 05/19/17 08:24 Last Admin: 05/19/17 11:13 Dose: 18 ml Lidocaine/Sodium Bicarbonate (Buffered Lidocaine 1% In Ns 8.4%) 0.25 ml IV ONETIME PRN PRN Reason: Prior to IV Start Stop: 05/19/17 16:00 Last Admin: 05/19/17 08:19 Dose: 0.25 ml Meperidine HCl (Demerol) 12.5 mg IVPUSH ONETIME PRN PRN Reason: Shivering Stop: 05/19/17 14:00 Midazolam HCl (Versed 1 Mg/Ml) Confirm Administered Dose 2 mg .ROUTE .STK-MED ONE Stop: 05/19/17 09:20 Morphine Sulfate (Duramorph Pf) Confirm Administered Dose 1 mg .ROUTE .STK-MED ONE Stop: 05/19/17 08:57 Ondansetron HCl (Zofran) Confirm Administered Dose 4 mg .ROUTE .STK-MED ONE Stop: 05/19/17 09:22 Ondansetron HCl (Zofran) 4 mg IVPUSH ONETIME PRN PRN Reason: Nausea/Vomiting Stop: 05/19/17 14:00 Propofol (Diprivan 20 Ml) Confirm Administered Dose 600 mg .ROUTE .STK-MED ONE Stop: 05/19/17 09:20 Tranexamic Acid (Cyklokapron) Confirm Administered Dose 1,000 mg .ROUTE .STK- MED ONE Stop: 05/19/17 08:23 Last Admin: 05/19/17 11:21 Dose: 1,000 mg Vancomycin HCl (Vancomycin) Confirm Administered Dose 1 gm .ROUTE .STK-MED ONE Stop: 05/19/17 08:23 Last Admin: 05/19/17 11:20 Dose: 1 gm Warfarin Sodium (Coumadin) 10 mg PO ONETIME ONE Stop: 05/19/17 18:01 Last Admin: 05/19/17 18:10 Dose: 10 mg - Exam Wound/Incisions: Dressing Dry and Intact General: Alert, Cooperative, No Acute Distress Lungs: Normal Respiratory Effort Extremities: Other (Right thigh soft, eccymotic. NVS intact for LLE. Gustavo's negative.) - Problem List Review Problem List Initiated/Reviewed/Updated: Yes - My Orders Last 24 Hours: Active Orders 24 hr Category Date Time Status Blood Glucose Check, Bedside [RC] QIDACANDBED Care 05/20/17 01:14 Active Communication Order [RC] ASDIRECTED Care 05/19/17 12:00 Active Pulse Oximetry [RC] ASDIRECTED Care 05/19/17 12:00 Active Ready for Discharge [RC] PER UNIT ROUTINE Care 05/20/17 09:40 Active Urinary Catheter Insertion [Insert Urinary Catheter] [ Care 05/20/17 06:45 Ordered OM.PC] Q24H Cholecalciferol (Vitamin D3) [Vitamin D3] Med 05/20/17 09:00 Active 5,000 units PO DAILY Dextrose 50% in Water Med 05/19/17 16:54 Active 50 ml IVPUSH ASDIRECTED PRN Docusate Sodium [Colace] Med 05/19/17 21:00 Active 100 mg PO BID Enoxaparin [Lovenox] Med 05/20/17 09:00 Active 110 mg SUBCUT BID Famotidine [Pepcid] Med 05/19/17 21:00 Active 20 mg PO Q12H Insulin Aspart [NovoLOG] Med 05/19/17 17:00 Active See Protocol SUBCUT QIDACANDBED Metoprolol Succinate [Toprol XL] Med 05/20/17 09:00 Active 100 mg PO DAILY Rosuvastatin [Crestor] Med 05/19/17 21:00 Active 20 mg PO BEDTIME Warfarin [Coumadin] Med 05/20/17 18:00 Once 10 mg PO ONETIME ONE amLODIPine [Norvasc] Med 05/20/17 09:00 Active 10 mg PO DAILY glipiZIDE [Glucotrol] Med 05/20/17 09:00 Active 10 mg PO DAILY metFORMIN [Glucophage] Med 05/19/17 21:00 Active 1,000 mg PO BID Pulse Oximetry Continuous Monitoring [OM.PC] Routine Oth 05/19/17 12:00 Active Medication Orders Amlodipine Besylate (Norvasc) 10 mg PO DAILY [facility] Last Admin: 05/20/17 09:39 Dose: 10 mg Bisacodyl (Dulcolax) 5 mg PO DAILY PRN PRN Reason: Constipation Cholecalciferol (Vitamin D3) 5,000 units PO DAILY [facility] Last Admin: 05/20/17 09:37 Dose: 5,000 units Cyclobenzaprine HCl (Flexeril) 10 mg PO TID PRN PRN Reason: Spasms Dextrose/Water (Dextrose 50% In Water) 50 ml IVPUSH ASDIRECTED PRN PRN Reason: Hypoglycemia Diphenhydramine HCl (Benadryl) 25 mg IVPUSH Q4H PRN PRN Reason: Nausea Last Admin: 05/19/17 14:20 Dose: 25 mg Docusate Sodium (Colace) 100 mg PO BID [facility] Last Admin: 05/20/17 09:39 Dose: 100 mg Admin: 05/19/17 21:23 Dose: 100 mg Enoxaparin Sodium (Lovenox) 110 mg SUBCUT BID [facility] Last Admin: 05/20/17 09:39 Dose: 110 mg Famotidine (Pepcid) 20 mg PO Q12H [facility] Last Admin: 05/20/17 09:38 Dose: 20 mg Admin: 05/19/17 21:23 Dose: 20 mg Glipizide (Glucotrol) 10 mg PO DAILY [facility] Last Admin: 05/20/17 09:38 Dose: 10 mg Insulin Aspart (Novolog) 0 unit SUBCUT QIDACANDBED [facility] PRN Reason: Protocol Last Admin: 05/20/17 09:40 Dose: 1 units Admin: 05/19/17 22:21 Dose: 1 units Admin: 05/19/17 18:10 Dose: 2 units Magnesium Hydroxide (Milk Of Magnesia) 30 ml PO BID PRN PRN Reason: Constipation Metformin HCl (Glucophage) 1,000 mg PO BID [facility] Last Admin: 05/20/17 09:38 Dose: 1,000 mg Admin: 05/19/17 21:23 Dose: 1,000 mg Metoprolol Succinate (Toprol Xl) 100 mg PO DAILY [facility] Last Admin: 05/20/17 09:37 Dose: 100 mg Morphine Sulfate (Morphine) 2 mg IVPUSH Q2H PRN PRN Reason: Breakthrough Pain Naloxone HCl (Narcan) 0.1 mg IVPUSH Q5M PRN PRN Reason: Oversedation Ondansetron HCl (Zofran) 4 mg IVPUSH Q6H PRN PRN Reason: Nausea/Vomiting Oxycodone/Acetaminophen (Percocet 325-5 Mg) 1 - 2 tab PO Q4H PRN PRN Reason: Pain Last Admin: 05/20/17 09:38 Dose: 2 tab Admin: 05/20/17 04:30 Dose: 2 tab Admin: 05/19/17 18:08 Dose: 1 tab Rosuvastatin Calcium (Crestor) 20 mg PO BEDTIME [facility] Last Admin: 05/19/17 21:23 Dose: 20 mg Senna (Senna) 8.6 mg PO BID PRN PRN Reason: Constipation Sodium Chloride (Saline Flush) 10 ml FLUSH ASDIRECTED PRN PRN Reason: Keep Vein Open Warfarin Sodium (Pharmacy To Dose - Warfarin) 1 dose .XX ASDIRECTED [facility] Warfarin Sodium (Coumadin) 10 mg PO ONETIME ONE Stop: 05/20/17 18:01 - Assessment Assessment (Free Text/Narrative):: POD#1 - right GUIDO - Plan Plan (Free Text/Narrative):: 1. Hgb 12.2. 2. May d/c to home if cleared by Hospitalist service. 3. Lovenox until INR therapeutic. Pt has f/u with PCP scheduled. 4. GUIDO precautions. The pt's case was discussed with Dr. Soto.
[2017-05-20] MEDS ORDERED: Tamsulosin 0.4 MG Cap.ER PO ONE (14:14)
[2017-05-20 15:27] VITALS: BP 125/80
--- NOTE | 2017-05-20 16:52 | PCM.SN ---
- Free Text/Narrative Note: Shon has been having some difficulty with urination today. Flomax was given. He is having frequent small volume urinations. Volume has been increasing with each urination. His intake has virtually matched his output so he is not actively retaining. He will be discharged today. I did explain to him to seek care should he start retaining urine.
[2017-05-20] MEDS ORDERED: Warfarin 10 MG Tab PO ONE (18:00)
--- NOTE | 2017-05-21 11:24 | PCM.DCSUM1 ---
Discharge Summary - Hospital Course Brief History: Shon is a 56 yo male who underwent right GUIDO with Dr. Soto on 05-19-2017. The procedure was completed under spinal anesthesia. The pt tolerated the procedure well and was admitted to the Medical-Surgical Unit. Medical management was provided by the Hospitalist service. The pt's blood sugars were closely monitored. The pt's Hospital course was uneventful. The pt' s Hgb on POD#1 was 12.2. Lovenox and Coumadin were used post-operatively as pt has hx mechanical value and for VTE prophylaxis. SCDs and TEDs were also ordered. A Mepilex dressing was placed at the incision site at the time of surgery and remained clean and dry. The pt participated in P.T. and O.T. and progressed well. He followed the GUIDO precautions. The pt was allowed to WBAT and used a FWW for mobility. On POD#1, the pt was deemed appropriate to discharge to home with his . - Discharge Data Discharge Date: 05/20/17 Discharge Disposition: Home, Self-Care 01 Condition: Good - Patient Summary/Data Operative Procedure(s) Performed: right total hip arthroplasty Consults: Consultations 05/19/17 06:32 Consult to Physician [CONS] Routine OT Evaluation and Treatment [CONS] Routine PT Evaluation and Treatment [CONS] Routine - Patient Instructions Diet: Heart Healthy Diet, Diabetic Diet Activity: Apply Ice, As Tolerated, Elevate Extremity, Full Weight Bearing Activity, Other: Total hip precautions. Driving: Do Not Drive Showering/Bathing: May Shower Wound/Incision Care: Keep Operative Site/Wound Site Clean and Dry, Do NOT Change Dressing Notify Provider of: Fever, Increased Pain, Swelling and Redness, Drainage, Nausea and/or Vomiting Other/Special Instructions: Please get up and moving around every hour while awake. This helps to prevent blood clots. Please use the Lovenox injections until the Coumadin level is adequate. Please wear the VESTA hose during the day and you may remove them at night. Please schedule for P.T. Complete the P.T. exercises and stretches that were instructed in the Hospital. Please use the pain medication and muscle relaxant as needed. The medication may cause drowsiness and/or constipation. You could use a stool softener like docusate sodium or Colace 100mg twice daily and/or a laxative like Miralax daily for constipation. Contact your primary care provider for further instructions if you are constipated. Please schedule an appointment with your primary care provider for 'routine post-op care'. Use the incentive spirometer often. Please place ice to the hip often. Please elevate the limb to decrease swelling. Follow the total hip precautions. Keep the Mepilex dressing in place until follow-up. Closely monitor your blood sugars and notify your primary care provider if the values are abnormal. Please call [phone] with questions or concerns. - Discharge Plan Prescriptions/Med Rec: Acetaminophen/oxyCODONE [Percocet 325-5 MG] 1 - 2 tab PO Q4H PRN #60 tablet PRN Reason: Pain Cyclobenzaprine [Flexeril] 10 mg PO TID PRN #40 tablet PRN Reason: Spasms Enoxaparin [Lovenox] 110 mg SUBCUT BID #7 syringe Famotidine [Pepcid] 20 mg PO Q12H #60 tablet Home Medications: Home Meds Cholecalciferol (Vitamin D3) [Vitamin D3] 5,000 unit PO DAILY 05/16/17 [History] Ondansetron [Zofran ODT] 4 mg PO Q8H PRN 05/16/17 [History] amLODIPine Besylate [Amlodipine Besylate] 10 mg PO DAILY 05/16/17 [History] atorvaSTATin [Lipitor] 80 mg PO BEDTIME 05/16/17 [History] glipiZIDE [Glucotrol] 10 mg PO DAILY 05/16/17 [History] metFORMIN HCl [Metformin HCl] 1,000 mg PO BID 05/16/17 [History] Metoprolol Succinate 100 mg PO DAILY 05/19/17 [History] Acetaminophen/oxyCODONE [Percocet 325-5 MG] 1 - 2 tab PO Q4H PRN #60 tablet [Rx] Cyclobenzaprine [Flexeril] 10 mg PO TID PRN #40 tablet 05/20/17 [Rx] Docusate Sodium [Colace] 100 mg PO BID cap 05/20/17 [Rx] Enoxaparin [Lovenox] 110 mg SUBCUT BID #7 syringe 05/20/17 [Rx] Famotidine [Pepcid] 20 mg PO Q12H #60 tablet 05/20/17 [Rx] Warfarin [Coumadin] 10 mg PO DAILY #0 05/20/17 [Rx] Patient Handouts: Total Hip Replacement, Care After, Total Hip Replacement Referrals: Carmen Barriga PA-C [Physician Web [employer] Developer] - 05/27/17 11:00 am (1. Follow-up with Carmen Barriga PA-C on Saturday, May 27, 2017 at 11:00 am. 2. Follow-up with Carmen Barriga PA-C on Saturday, June 03, 2017 at 1:15 pm.) Jennifer Benavides [Primary Care Provider] - 05/23/17 10:00 am - Patient Data Vitals - Most Recent: Last Vital Signs Temp 98.4 F 05/20/17 15:24 Pulse 88 05/20/17 15:24 Resp 28 H 05/20/17 15:24 BP 125/80 05/20/17 15:24 Pulse Ox 96 05/20/17 15:24 Weight - Most Recent: 258 lb 6.4 oz I&O - Last 24 hours: Intake & Output 05/20/17 05/21/17 05/21/17 22:59 06:59 14:59 Intake Total 2120 Output Total 1175 Balance 945 Lab Results - Last 24 hrs: Laboratory Results - last 24 hr 05/19/17 05/19/17 05/20/17 Range/Units 08:28 08:28 08:28 Ref Lab Test Name Npl Cancelled Ref Lab Test Result See scanned report Cancelled Ref Test Perform Site Fya antigen Cancelled Antibody Identification Anti-Fya Med Orders - Current: Current Medications Discontinued Medications Amlodipine Besylate (Norvasc) 10 mg PO DAILY [facility] Last Admin: 05/20/17 09:39 Dose: 10 mg Bisacodyl (Dulcolax) 5 mg PO DAILY PRN PRN Reason: Constipation Bupivacaine HCl (Marcaine 0.25%) Confirm Administered Dose 30 ml .ROUTE .STK- MED ONE Stop: 05/19/17 08:24 Last Admin: 05/19/17 11:19 Dose: 30 ml Cefazolin Sodium (Ancef) Confirm Administered Dose 2 gm .ROUTE .STK-MED ONE Stop: 05/19/17 08:22 Last Admin: 05/19/17 11:14 Dose: 2 gm Cefazolin Sodium (Ancef) Confirm Administered Dose 2 gm .ROUTE .STK-MED ONE Stop: 05/19/17 09:23 Cholecalciferol (Vitamin D3) 5,000 units PO DAILY [facility] Last Admin: 05/20/17 09:37 Dose: 5,000 units Morphine Sulfate 8 mg/Epinephrine HCl 0.3 mg/Cefuroxime Sodium 750 mg/Ketorolac Tromethamine 30 mg/Sodium Chloride 27.9 ml 0 mg .XX ONETIME ONE Stop: 05/19/17 08:31 Last Admin: 05/19/17 11:18 Dose: 788.3 mg Cyclobenzaprine HCl (Flexeril) 10 mg PO TID PRN PRN Reason: Spasms Dextrose/Water (Dextrose 50% In Water) 50 ml IVPUSH ASDIRECTED PRN PRN Reason: Hypoglycemia Diphenhydramine HCl (Benadryl) 25 mg IVPUSH Q4H PRN PRN Reason: Nausea Last Admin: 05/19/17 14:20 Dose: 25 mg Diphenhydramine HCl (Benadryl) 25 mg IVPUSH Q6H PRN PRN Reason: Pruritis Stop: 05/19/17 14:00 Docusate Sodium (Colace) 100 mg PO BID [facility] Last Admin: 05/20/17 09:39 Dose: 100 mg Enoxaparin Sodium (Lovenox) 30 mg SUBCUT BID [facility] Enoxaparin Sodium (Lovenox) 110 mg SUBCUT BID [facility] Last Admin: 05/20/17 09:39 Dose: 110 mg Famotidine (Pepcid) 20 mg PO Q12H [facility] Last Admin: 05/20/17 09:38 Dose: 20 mg Fentanyl (Sublimaze) Confirm Administered Dose 100 mcg .ROUTE .STK-MED ONE Stop: 05/19/17 09:20 Fentanyl (Sublimaze) 50 mcg IVPUSH Q5M PRN PRN Reason: Pain Stop: 05/19/17 14:00 Glipizide (Glucotrol) 10 mg PO DAILY [facility] Last Admin: 05/20/17 09:38 Dose: 10 mg Lactated Ringer's (Ringers, Lactated) 1,000 mls @ 125 mls/hr IV ASDIRECTED [facility] Stop: 05/19/17 23:00 Last Admin: 05/19/17 08:20 Dose: 125 mls/hr Cefazolin Sodium/Dextrose 2 gm (/ Premix) 50 mls @ 100 mls/hr IV Q8H [facility] Stop: 05/20/17 08:59 Last Admin: 05/20/17 09:32 Dose: 100 mls/hr Lactated Ringer's (Ringers, Lactated) Confirm Administered Dose 1,000 mls @ as directed .ROUTE .STK-MED ONE Stop: 05/19/17 11:19 Lactated Ringer's (Ringers, Lactated) Confirm Administered Dose 1,000 mls @ as directed .ROUTE .STK-MED ONE Stop: 05/19/17 11:39 Influenza Virus Vaccine (Pharmacy To Dose - Influenza Vaccine) 1 each IM ONETIME ONE Stop: 05/19/17 17:00 Influenza Virus Vaccine (Flulaval Quad [id number]) 60 mcg IM .ONCE ONE Stop: 05/19/17 17:16 Last Admin: 05/20/17 17:44 Dose: 60 mcg Insulin Aspart (Novolog) 0 unit SUBCUT QIDACANDBED [facility] PRN Reason: Protocol Last Admin: 05/20/17 17:22 Dose: Not Given Iodine (Iodine 2% Mild Tincture) Confirm Administered Dose 30 ml .ROUTE .STK- MED ONE Stop: 05/19/17 08:24 Last Admin: 05/19/17 11:13 Dose: 18 ml Lidocaine/Sodium Bicarbonate (Buffered Lidocaine 1% In Ns 8.4%) 0.25 ml IV ONETIME PRN PRN Reason: Prior to IV Start Stop: 05/19/17 16:00 Last Admin: 05/19/17 08:19 Dose: 0.25 ml Magnesium Hydroxide (Milk Of Magnesia) 30 ml PO BID PRN PRN Reason: Constipation Meperidine HCl (Demerol) 12.5 mg IVPUSH ONETIME PRN PRN Reason: Shivering Stop: 05/19/17 14:00 Metformin HCl (Glucophage) 1,000 mg PO BID [facility] Last Admin: 05/20/17 09:38 Dose: 1,000 mg Metoprolol Succinate (Toprol Xl) 100 mg PO DAILY [facility] Last Admin: 05/20/17 09:37 Dose: 100 mg Midazolam HCl (Versed 1 Mg/Ml) Confirm Administered Dose 2 mg .ROUTE .STK-MED ONE Stop: 05/19/17 09:20 Morphine Sulfate (Morphine) 2 mg IVPUSH Q2H PRN PRN Reason: Breakthrough Pain Morphine Sulfate (Duramorph Pf) Confirm Administered Dose 1 mg .ROUTE .STK-MED ONE Stop: 05/19/17 08:57 Naloxone HCl (Narcan) 0.1 mg IVPUSH Q5M PRN PRN Reason: Oversedation Ondansetron HCl (Zofran) 4 mg IVPUSH Q6H PRN PRN Reason: Nausea/Vomiting Ondansetron HCl (Zofran) Confirm Administered Dose 4 mg .ROUTE .STK-MED ONE Stop: 05/19/17 09:22 Ondansetron HCl (Zofran) 4 mg IVPUSH ONETIME PRN PRN Reason: Nausea/Vomiting Stop: 05/19/17 14:00 Oxycodone/Acetaminophen (Percocet 325-5 Mg) 1 - 2 tab PO Q4H PRN PRN Reason: Pain Last Admin: 05/20/17 17:20 Dose: 2 tab Propofol (Diprivan 20 Ml) Confirm Administered Dose 600 mg .ROUTE .STK-MED ONE Stop: 05/19/17 09:20 Rosuvastatin Calcium (Crestor) 20 mg PO BEDTIME [facility] Last Admin: 05/19/17 21:23 Dose: 20 mg Senna (Senna) 8.6 mg PO BID PRN PRN Reason: Constipation Sodium Chloride (Saline Flush) 10 ml FLUSH ASDIRECTED PRN PRN Reason: Keep Vein Open Tamsulosin HCl (Flomax) 0.4 mg PO ONETIME ONE Stop: 05/20/17 14:15 Last Admin: 05/20/17 17:21 Dose: 0.4 mg Tranexamic Acid (Cyklokapron) Confirm Administered Dose 1,000 mg .ROUTE .STK- MED ONE Stop: 05/19/17 08:23 Last Admin: 05/19/17 11:21 Dose: 1,000 mg Vancomycin HCl (Vancomycin) Confirm Administered Dose 1 gm .ROUTE .STK-MED ONE Stop: 05/19/17 08:23 Last Admin: 05/19/17 11:20 Dose: 1 gm Warfarin Sodium (Pharmacy To Dose - Warfarin) 1 dose .XX ASDIRECTED PEDRITO Warfarin Sodium (Coumadin) 10 mg PO ONETIME ONE Stop: 05/19/17 18:01 Last Admin: 05/19/17 18:10 Dose: 10 mg Warfarin Sodium (Coumadin) 10 mg PO ONETIME ONE Stop: 05/20/17 18:01 Last Admin: 05/20/17 17:21 Dose: 10 mg *Q Meaningful Use (DIS) - VTE *Q VTE Criteria *Q: - Stroke *Q Stroke Criteria *Q: - AMI *Q AMI Criteria *Q:
--- NOTE | 2017-05-27 12:24 | OR ---
DATE OF OPERATION: 05/19/2017 SURGEON: Amarjit Soto MD OPERATION PERFORMED: Right total hip arthroplasty. PREOPERATIVE DIAGNOSIS: Right hip osteoarthrosis. POSTOPERATIVE DIAGNOSIS: Right hip osteoarthrosis. ANESTHESIA: Local MAC with spinal. ANESTHESIA PROVIDER: Bryce Pinto. ASSISTANTS: Carmen Barriga PA-C, and Norma Chawla LPN. ESTIMATED BLOOD LOSS: 600 mL. COMPLICATIONS: None. CONDITION: Stable. IMPLANTS: 1. Howell size 50 PSL hemispherical cup. 2. Vibha size 7 Accolade II stem. 3. Howell size 7, 42 mm MDM liner. 4. Howell size 28, +8 mm ceramic head. DESCRIPTION OF PROCEDURE: The patient was identified in the preoperative holding area. Proper site was marked and identified by the surgeon. The patient was taken back to the operating theater, where after adequate anesthesia, the patient was placed in the left lateral decubitus position. Axillary roll was placed. All bony prominences were well padded. Pegs were then placed and well padded. The patient's right hip was then sterilely prepped and draped in the usual sterile fashion. OR time-out was performed. The patient received 2 g IV Ancef. At this time, the right hip was then sterilely prepped and draped in the usual sterile fashion. OR time-out was performed. The patient received 2 g IV Ancef. At this time, posterior incision was made centered over the greater trochanter. This was taken down to the IT band and gluteal fascia, which was then incised along the incisional length. Charnley retractor was then placed, and attention was turned to the short external rotators. They were identified, and takedown of short external rotators was done from the piriformis all the way down to the level of the lesser trochanter along with capsulotomy. Hip was then dislocated. Neck cut guide was then placed. Neck cut was then completed and found to be adequate. At this time, anterior and posterior acetabular retractors were then placed. The excess labrum was removed along with the pulvinar. The patient was also noted to have a very large inferior osteophyte, which was removed at this time as well. At this time, starting with a size 42 reamer, I was able to ream up to a 50, which was found to be stable. At this time, the trial was impacted into place and was found to have adequate stability. At this time, a size 50 PSL hemispherical cup was impacted into place in roughly 45 degrees of abduction and 20 degrees of anteversion. At this time, the 42 mm MDM liner was impacted into place. Attention was turned to the femur. A femoral elevator was placed. A box chisel was used out laterally and starter awl was placed down the canal. Starting with a size 0 broach, I was able to broach up to a size 7, which was found to be rotationally and vertically stable. At this time, we trialed a standard +0 head and neck and was found to have short leg lengths. At this time, +8 was found to have adequate uatsdin of leg lengths and stability throughout range of motion. At this time, the hip was dislocated. Size 7 Accolade II stem was impacted into place along with the 28, +8 mm head and MDM components. At this time, the hip was relocated, it was found to be stable. One liter dilute Betadine solution was irrigated through the knee along with 3 L of pulse lavage irrigation with Ancef. A #5 Ethibond suture was used for closure of the short external rotators and capsule. A #2 barbed suture was used for closure of the IP band and gluteal fascia after topical tranexamic acid and vancomycin powder was placed. A 2-0 Vicryl was used subcutaneously and Prineo was used for the skin. The patient tolerated the procedure well, sent to PACU in stable condition. MMAPOLLO /[id number]
== END 2017-05-20 17:47 | disposition home or self-care (01) | DRG 470 ==
LOC: JD.MS 07:57
PROVIDERS: ADMIT Orthopaedic Surgery; ATTEND Orthopaedic Surgery
PROC: 0SR90JZ Replacement of Right Hip Joint with Synthetic Substitute, Open Approach (ICD-10-PCS; principal; 2017-05-19)
PROC: 3E0234Z Introduction of Serum, Toxoid and Vaccine into Muscle, Percutaneous Approach (ICD-10-PCS; 2017-05-20)
DX: M16.11 Unilateral primary osteoarthritis, right hip (principal); E11.9 Type 2 diabetes mellitus without complications; I10 Essential (primary) hypertension; E78.00 Pure hypercholesterolemia, unspecified; Z79.01 Long term (current) use of anticoagulants; Z87.891 Personal history of nicotine dependence; E66.9 Obesity, unspecified; Z68.38 Body mass index [BMI] 38.0-38.9, adult; Z95.2 Presence of prosthetic heart valve; G47.30 Sleep apnea, unspecified; Z23 Encounter for immunization
CPT/HCPCS: 01214; 36415; 51701; 51798; 73501-26-RT; 73501-RT; 80053; 82962; 85027; 85610; 85730; 86850; 86870; 86900; 86901; 86902; 86905; 87641; 90686; 94762; 97110-GP; 97116-GP; 97161-GP; 97166-GO; 97530-GO; 97535-GO; 99221; A9270-GY; C1776; G0008; J0171; J0690; J0697; J1200; J1650; J1815-GY; J1885; J2250; J2270; J2274; J2405; J2704; J3010; J3370; J3490; J7120

== ENCOUNTER 2018-09-06 12:17 | Emergency (ER) | payer MEDICARE, OTHER ==
[2018-09-06 12:33] VITALS: BP 133/89
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
[2018-09-06] MEDS ORDERED: Sodium Chloride 0.9% 10 ML Syringe FLUSH PRN (14:43)
[2018-09-06] MEDS ORDERED: Iohexol 350 MG/ML 75 ML Bottle IVPUSH ONE (14:43)
[2018-09-06] MEDS ORDERED: Aspirin 81 MG Tab.Chew PO ONE (14:44)
[2018-09-06] MEDS ORDERED: Sodium Chloride 0.9% 100 ML IV SCH (14:45)
[2018-09-06] MEDS ORDERED: Heparin Sodium/D5W 25,000 UNITS/500 ML BAG IV SCH ×2 (15:15→15:30)
--- NOTE | 2018-09-07 08:04 | CT ---
Head CT Technique: Multiple axial sections through the brain were obtained. Intravenous contrast was not utilized. Comparison: Prior MRI brain of 03/11/[address] exam of 03/02/17. Findings: Right-sided craniotomy is noted. Encephalomalacia is noted throughout a large portion of the right frontal lobe. Small area of encephalomalacia is seen within the left parietal region. Both these findings are stable from previous exam. Ventricles are mildly prominent as well as sulci over the convexities which appear stable. Ex vacuole enlargement is noted of the right frontal horn. No evidence of intracranial hemorrhage. No midline shift or mass effect is appreciated. Impression: 1. Prior right-sided craniotomy with areas of encephalomalacia as noted above which appear stable. 2. Mild generalized atrophy. 3. No acute intracranial abnormality is appreciated. Diagnostic code #3 I agree with preliminary report from [facility], finalized on 09/06/18, 2:01 PM Central Time
--- NOTE | 2018-09-07 08:04 | CR ---
Chest: Portable view of the chest was obtained. Comparison: Prior chest x-ray of 09/15/16. Heart size and mediastinum are normal. Previous sternotomy is seen. Lungs are clear with no acute parenchymal change. Bony structures are grossly intact. Impression: 1. Nothing acute is appreciated on frontal chest x-ray. Diagnostic code #2
== END 2018-09-06 15:40 ==
LOC: JD.ED 12:17
DX: G45.9 Transient cerebral ischemic attack, unspecified (principal); R79.1 Abnormal coagulation profile; I10 Essential (primary) hypertension; E11.9 Type 2 diabetes mellitus without complications; Z79.01 Long term (current) use of anticoagulants; Z79.899 Other long term (current) drug therapy
CPT/HCPCS: 36415; 70450; 71045; 80053; 81001; 84484; 85007; 85027; 85610; 85730; 93005; 96365; 99285; A9270; 93010

== ENCOUNTER 2020-07-13 05:57 | Day surgery (SDC) | payer MEDICARE, OTHER ==
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
[~2020-07-13 05:57] MED LIST changes: -Bisacodyl 5 MG Tab PO PRN; -Cyclobenzaprine 10 MG Tab PO PRN; +Lidocaine 1%/Sod Bicarbonate in NS 8.4% 1 ML Syringe IDERM PRN; -Lidocaine 1%/Sod Bicarbonate in NS 8.4% 1 ML Syringe IV PRN; -Magnesium Hydroxide 400 MG/5 ML Susp 30 ML Cup PO PRN; -Morphine 2 MG/ML Syringe IVPUSH PRN; -Naloxone 0.4 MG/ML SDV IVPUSH PRN; -Ondansetron 4 MG/2 ML SDV IVPUSH PRN; -Sennosides 8.6 MG Tab PO PRN; -diphenhydrAMINE 50 MG/ML SDV IVPUSH PRN
[2020-07-13] MEDS ORDERED: Pregabalin 25 MG Cap PO SCH (06:00)
[2020-07-13] MEDS ORDERED: Acetaminophen 325 MG Tab PO SCH (06:00)
[2020-07-13] MEDS ORDERED: oxyCODONE ER 10 MG TAB.ER PO SCH (06:00)
[2020-07-13] MEDS ORDERED: Ketorolac 30 MG/ML SDV ONE (06:17)
[2020-07-13] MEDS ORDERED: Midazolam 1 MG/ML 2 ML SDV ONE (06:17)
[2020-07-13] MEDS ORDERED: Ondansetron 4 MG/2 ML SDV ONE (06:17)
[2020-07-13] MEDS ORDERED: fentaNYL 100 MCG/2 ML SDV ONE (06:17)
[2020-07-13] MEDS ORDERED: Propofol 200 MG/20 ML SDV ONE (06:17)
[2020-07-13] MEDS ORDERED: ceFAZolin 1 GM Vial ONE (06:17)
[2020-07-13] MEDS ORDERED: Lactated Ringers 2,000 ML ONE (06:17)
[2020-07-13] MEDS ORDERED: Lidocaine 1% 4 ML ONE (06:17)
[2020-07-13] MEDS ORDERED: Ketamine 500 mg/10 ML MDV ONE (06:18)
[2020-07-13] MEDS ORDERED: Morphine 8 MG, EPINEPHrine 0.3 MG, Cefuroxime 750 MG, Ketorolac 30 MG, Sodium Chloride ... PRN ×5 (07:14)
[2020-07-13] MEDS ORDERED: ePHEDrine 50 MG/ML SDV ONE (07:38)
[2020-07-13] MEDS ORDERED: HYDROmorphone 0.5 MG/0.5 ML Syringe IVPUSH PRN (07:54)
[2020-07-13] MEDS ORDERED: Ondansetron 4 MG/2 ML SDV IVPUSH PRN (07:54)
[2020-07-13] MEDS ORDERED: Phenylephrine/Normal Saline 100 MCG/ML 10 ML Syringe IVPUSH PRN (07:54)
[2020-07-13] MEDS ORDERED: diphenhydrAMINE 50 MG/ML SDV IVPUSH PRN (07:54)
[2020-07-13] MEDS ORDERED: ePHEDrine 50 MG/ML SDV IVPUSH PRN (07:54)
[2020-07-13] MEDS ORDERED: fentaNYL 100 MCG/2 ML SDV IVPUSH PRN (07:54)
[2020-07-13] MEDS ORDERED: Albuterol 0.083% 2.5 MG/3 ML Neb Soln NEB PRN (07:54)
[2020-07-13] MEDS: Morphine 8 MG, EPINEPHrine 0.3 MG, Cefuroxime 750 MG, Ketorolac 30 MG, Sodium Chloride ... PRN ×10 (08:17→08:35)
[2020-07-13] MEDS: Vancomycin 1 GM SDV ONE ×2 (08:18→08:37)
--- NOTE | 2020-07-13 09:14 | PCM.POSTAN ---
POST ANESTHESIA ASSESSMENT - MENTAL STATUS Mental Status: Alert - VITAL SIGNS Vital Signs: Last Vital Signs Temp 97.3 07/13/20901 Pulse 67 07/13/20 0902 Resp 12 07/13/2002 BP 110/72 07/13/20901 Pulse Ox 93 07/13/20 09:02 - RESPIRATORY Respiratory Status: Respiratory Rate WNL, Airway Patent, O2 Saturation Stable, Supplemental Oxygen - CARDIOVASCULAR CV Status: Pulse Rate WNL, Blood Pressure Stable - GASTROINTESTINAL GI Status: No Symptoms - POST OP HYDRATION Hydration Status: Adequate & Stable
[2020-07-13] MEDS ORDERED: oxyCODONE 5 MG Tab PO PRN (09:44)
--- NOTE | 2020-07-13 10:34 | CR ---
Pelvis and left hip: AP view of the pelvis was obtained as well as crosstable lateral views of the left hip. Comparison: Prior CT pelvis exam of 06/30/20. Stable right hip prosthesis is noted. Newly placed left hip prosthesis is seen. Slight soft tissue air is noted around the left hip. Mild heterotopic bone is noted around the right hip. Inferior vena cava filter is seen. No acute osseous abnormality is otherwise noted. Impression: 1. Newly placed left hip prosthesis. 2. Other stable findings as noted above. Diagnostic code #2
--- NOTE | 2020-07-13 11:44 | PCM48HPAN ---
Post Anesthesia Note - EVALUATION WITHIN 48HRS OF ANESTHETIC Vital Signs in Normal Range: Yes Patient Participated in Evaluation: Yes Respiratory Function Stable: Yes Airway Patent: Yes Cardiovascular Function Stable: Yes Hydration Status Stable: Yes Pain Control Satisfactory: Yes Nausea and Vomiting Control Satisfactory: Yes Mental Status Recovered: Yes Vital Signs: Last Vital Signs Temp 36.7 C 07/13/20 10:30 Pulse 63 07/13/20 10:30 Resp 14 07/13/20 10:30 BP 137/79 07/13/20 10:30 Pulse Ox 97 07/13/20 10:30
--- NOTE | 2020-07-13 12:43 | PCM.OPNOTE ---
- General Post-Op/Procedure Note Date of Surgery/Procedure: 07/13/20 Operative Procedure(s): left total hip arthroplasty with tawny robotics Pre Op Diagnosis: left hip osteoarthrosis Post-Op Diagnosis: Same Anesthesia Technique: Local, MAC, Spinal Primary Surgeon: Amarjit Soto Anesthesia Provider: Georgina Johnson Wedding Cake Designer: Carmen Barriga Wedding Cake Designer: Norma Chawla EBL in mLs: 150 Complications: None Condition: Good Free Text/Narrative:: Intake & Output 07/12/20 07/13/20 07/13/20 22:59 06:59 14:59 Intake Total 300 Balance 300 56 cup 6 36+5
[2020-07-13 15:40] VITALS: BP 116/89; PULSE 66
--- NOTE | 2020-07-23 21:27 | OR ---
DATE OF OPERATION: 07/13/2020 SURGEON: Amarjit Soto MD OPERATION PERFORMED: Left total hip arthroplasty with Carl robotics. PREOPERATIVE DIAGNOSIS: Left hip osteoarthrosis. POSTOPERATIVE DIAGNOSIS: Left hip osteoarthrosis. ANESTHESIA: Local MAC with spinal. ANESTHESIA PROVIDER: Georgina Johnson CRNA ASSISTANTS: Carmen Barriga PA-C and Norma Chawla LPN. ESTIMATED BLOOD LOSS: 150 mL. COMPLICATIONS: None. CONDITION: Stable. IMPLANTS: 1. Vibha size 56 mm solid Tritanium II acetabular cup. 2. Vibha size 6 Accolade II stem. 3. Vibha size 36+ 5 Biolox femoral head. DESCRIPTION OF PROCEDURE: The patient was identified in the preoperative holding area. Proper site was marked and identified by surgeon. The patient was taken back to the operating theater, where after adequate anesthesia, the patient was placed in the right lateral decubitus position. Axillary roll was placed. All bony prominences were well padded. Pegs were then placed and well padded. The patient's gluteal fold was parallel to the floor. The left hip was then sterilely prepped and draped in the usual sterile fashion. OR time-out was performed. The patient received 2 g IV Ancef. Three small poke holes were then placed up on the iliac crest 3 fingerbreadths back from the ASIS for the [place] Carl robotic array. A Vibha Carl robotic array was then placed making sure that the probe was down onto bone. A standard posterior incision was then made. This was centered over the greater trochanter. This was taken down to the IT band and gluteal fascia, which was then incised along the incisional length. Charnley retractor was then placed. Checkpoint was placed on the greater trochanter. At this time, takedown of the short external rotators from the level of the piriformis down to the lesser trochanter was done as well as capsulotomy. Hip was then dislocated. Neck cut was completed and found to be adequate. Attention was turned to the acetabulum. Anterior and posterior acetabular retractors were placed. Circumferential removal of the labrum was then done at this time as well as removal of the pulvinar. Checkpoint was placed at the superior acetabulum extra- articularly. Fifteen points were then obtained intra-articularly on the acetabulum as well as the posterior and anterior horn of the acetabulum. Then, 15 points were obtained from around the acetabulum. At this time, the [email or web address] robotic plan was done showing it to be in proper position. At this time, first a 52 reamer was brought in and we medialized, and then a 56 mm was brought in with a [place] robotic arm. It was found to be in good position at 45 degrees of abduction and 20 degrees of anteversion. At this time, the cup was opened and was impacted into place. It was found to be in proper position with [email or web address] robotics performed. This was then detached. The 36 flat liner was then impacted into place, and attention was turned to the femur. Box chisel was used out laterally. Starter awl was placed down the canal starting with 0 broach. I was able to broach up to a size 6 which was found to be rotationally and vertically stable, 127-degree trial neck was placed as well as a 36+ 5. It had complete pentecostal of leg length compared to the contralateral side and was stable throughout range of motion. Bone hook was used to dislocate the trial implants. These were then removed. The size 6 Accolade II stem was then impacted in place and a 36+ 5 Biolox femoral head was impacted in place. At this time, the hip was then relocated. A #5 Ethibond suture was used for closure of the short external rotators and capsule. 1 L pulse lavage irrigation with Ancef was irrigated through the hip along with 400 mL Irrisept irrigation. Periarticular injection was completed. Topical tranexamic acid and vancomycin powder were applied. A #2 barbed suture was used for closure of the IT band and gluteal fascia, 2-0 Vicryl was used subcutaneously, Prineo was used for closure of the skin. The patient had a sterile soft dressing applied and sent to PACU in stable condition. MMODAL /[id number]
== END 2020-07-13 15:00 | disposition home or self-care (01) ==
LOC: JD.SDS 05:57
PROVIDERS: ATTEND Orthopaedic Surgery
DX: M16.12 Unilateral primary osteoarthritis, left hip (principal); E11.9 Type 2 diabetes mellitus without complications; I25.10 Atherosclerotic heart disease of native coronary artery without angina pectoris; M19.90 Unspecified osteoarthritis, unspecified site; E78.5 Hyperlipidemia, unspecified; I10 Essential (primary) hypertension; E66.01 Morbid (severe) obesity due to excess calories; Z68.36 Body mass index [BMI] 36.0-36.9, adult; Z79.01 Long term (current) use of anticoagulants; Z79.84 Long term (current) use of oral hypoglycemic drugs; Z79.899 Other long term (current) drug therapy; Z87.891 Personal history of nicotine dependence; Z86.73 Personal history of transient ischemic attack (TIA), and cerebral infarction without residual deficits; Z95.2 Presence of prosthetic heart valve; Z98.890 Other specified postprocedural states
CPT/HCPCS: 27130; 36415; 73501; 82962; 85610; 85730; 86850; 86870; 86900; 86901; 87641; 97110; 97161; 97165; A9270; C1713; C1776; J0171; J0690; J0697; J1885; J2250; J2270; J2370; J2405; J2704; J3010; J3370; J7120; 01214

== ENCOUNTER 2024-01-27 06:44 | Day surgery (SDC) | payer MEDICARE ==
[~2024-01-27 06:44] MED LIST changes: -Lactated Ringers 1,000 ML IV SCH; -Lidocaine 1%/Sod Bicarbonate in NS 8.4% 1 ML Syringe IDERM PRN
[2024-01-27] MEDS: Lactated Ringers 1,000 ML IV SCH (07:00)
[2024-01-27] MEDS ORDERED: Propofol 200 MG/20 ML SDV ONE (07:34)
[2024-01-27] MEDS ORDERED: Lidocaine 1% 4 ML ONE (07:34)
[2024-01-27] MEDS ORDERED: Lidocaine 1% PF 2 ML SDV ONE ×2 (07:34)
[2024-01-27] MEDS ORDERED: HYDROmorphone 0.5 MG/0.5 ML Syringe IVPUSH PRN (08:25)
[2024-01-27] MEDS ORDERED: fentaNYL 100 MCG/2 ML SDV IVPUSH PRN (08:25)
[2024-01-27] MEDS ORDERED: Ondansetron 4 MG/2 ML SDV IVPUSH PRN (08:25)
[2024-01-27 08:51] VITALS: BP 132/92; PULSE 71
[2024-01-27] MEDS ORDERED: Sodium Chloride 0.9% 10 ML Syringe FLUSH SCH (09:00)
== END 2024-01-27 08:45 | disposition home or self-care (01) ==
LOC: JD.SDS 06:44
PROVIDERS: ATTEND Surgery
DX: Z12.11 Encounter for screening for malignant neoplasm of colon (principal); I13.0 Hypertensive heart and chronic kidney disease with heart failure and stage 1 through stage 4 chronic kidney disease, or unspecified chronic kidney disease; I50.30 Unspecified diastolic (congestive) heart failure; E11.22 Type 2 diabetes mellitus with diabetic chronic kidney disease; N18.30 Chronic kidney disease, stage 3 unspecified; E78.2 Mixed hyperlipidemia; I25.10 Atherosclerotic heart disease of native coronary artery without angina pectoris; E66.01 Morbid (severe) obesity due to excess calories; Z79.82 Long term (current) use of aspirin; Z79.4 Long term (current) use of insulin; Z79.899 Other long term (current) drug therapy
CPT/HCPCS: 45378; J2704; J7120; J3490